=== PATIENT | female | born 1995 | race Caucasian/White ===

== ENCOUNTER 2023-06-13 02:30 | Inpatient (IN) | payer OTHER ==
[2023-06-13] MEDS ORDERED: Ondansetron PF 4 MG/2 ML Vial ONE ×2 (02:45→13:16)
[2023-06-13] MEDS ORDERED: Morphine 4 MG/ML VIAL ONE ×2 (02:57→03:19)
[2023-06-13 03:15] LABS: #Eosinphils 0.1 thou/uL (0.0-0.7); #Monocytes 0.5 thou/uL (0.11-0.59); #Neutrophils 5.2 thou/uL (1.40-6.50); %Basophils 0.3 % (0.0-1.0); %Eosinophils 1.6 % (0.0-10.0); %Lymphocytes 33.7 % (21.0-51.0); %Monocytes 5.1 % (0.0-10.0); %Neutrophils 59.1 % (42.0-75.0); Hematocrit 41.5 % (36.0-47.0); Hemoglobin 14.6 g/dL (12.0-16.0); Mean Corpuscular HGB CONC 35.2 g/dL (32.0-36.0); Mean Corpuscular Hemoglobin 31.5 pg (27.0-31.0); Mean Corpuscular Volume 89.6 fl (78.0-98.0); Mean Platelet Volume 10.3 fL (7.4-10.4); Platelet Count 321 10x3/uL (130-400); RBC Distribution Width 11.6 % (11.5-14.5); Red Blood Cell (RBC) Count 4.63 mill/uL (4.20-5.40); White Blood Cell (WBC) Count 8.9 10x3/uL (4.8-10.8)
[2023-06-13] MEDS ORDERED: HYDROmorphone 0.5 MG/0.5 ML SYRINGE ONE ×3 (03:38→11:48)
[2023-06-13 03:39] LABS: ALT (SGPT) 18 U/L (8-55); AST (SGOT) 24 U/L (5-34); Albumin 4.7 g/dL (3.5-5.0); Alkaline Phosphatase 61 U/L (40-110); Anion Gap 17 mmol/L (10-20); BUN (Urea Nitrogen) 21 mg/dL (7.0-18.7); Bilirubin, Total 0.2 mg/dL (0.2-1.2); Calc. Creatinine Clearance 0 mL/min (70-130); Carbon Dioxide 19 mmol/L (22-29); Chloride 108 mmol/L (98-107); Estimated GFR 77; Globulin 2.9 g/dL (2.4-3.5); Glucose 109 mg/dL (70-105); Lipase 45 U/L (8-78); Potassium 3.7 mmol/L (3.5-5.1); Protein, Total 7.6 g/dL (6.0-8.3); Sodium 140 mmol/L (136-145)
[2023-06-13 03:46] LABS: BHCG - Serum Negative (NEGATIVE); Pregs Control Background? CLEAR/WHITE (CLR/WHITE); Pregs Control Bar Appear? YES (CONTROL BAR)
[2023-06-13] MEDS ORDERED: Ketorolac Tromethamine 30 MG/ML VIAL ONE ×3 (04:32→13:16)
[2023-06-13 06:04] LABS: Bacteria/HPF 1+ HPF (None Seen); Bilirubin Negative (Negative); Blood, Urine 2+ (Negative); CAUTI Indications for Culture Dysuria,urgency,freq; Clarity Clear (Clear); Glucose, Urine (Dipstick) Normal (Negative); Ketone, Urine Negative (Negative); Leukocyte 500 Leu/uL (Negative); Nitrite Negative (Negative); Protein, Urine (Dipstick) Negative (Neg-Trace); Specific Gravity, Urine 1.036 (1.002-1.036); Urobilinogen Normal mg/dL (Less than 2); WBC/HPF Greater than 50 HPF (0-3)
[2023-06-13 06:05] LABS: Urine Culture Reflex Yes Yes
[2023-06-13] MEDS ORDERED: cefTRIAXone (ROCEPHIN) 1 GM VIAL ONE (06:11)
[2023-06-13] MEDS ORDERED: Senokot S 8.6-50 MG TAB PO PRN (07:39)
[2023-06-13] MEDS ORDERED: Guaifenesin DM 100-10/5 ML UDCUP PO PRN (07:39)
[2023-06-13] MEDS ORDERED: Morphine 4 MG/ML VIAL SLOW IVP PRN (07:58)
[2023-06-13 08:12] VITALS: BMI 29.2
[2023-06-13] MEDS ORDERED: FLU VACC QS2023-24(6MOS UP)/PF 60 MCG/0.5 ML SYRINGE IM ONE (08:30)
[2023-06-13] MEDS: HYDROcodone/Acetaminophen 5/325 mg Tablet PO PRN ×2 (08:37→20:04)
[2023-06-13] MEDS: Sodium Chloride 0.9% 1,000 ML IV SCH ×2 (08:38→17:18)
[2023-06-13] MEDS ORDERED: Iopamidol 30 ML ONE (09:06)
[2023-06-13] MEDS: Ondansetron PF 4 MG/2 ML Vial IVP PRN ×2 (09:17→15:01)
[2023-06-13] MEDS ORDERED: fentaNYL 50 mcg/mL 1 mL Vial ONE ×3 (10:44→14:22)
[2023-06-13] MEDS ORDERED: fentaNYL PF 100 MCG/2 ML SYRINGE ONE (12:46)
[2023-06-13] MEDS ORDERED: Midazolam HCl 2 mg/2 ml Vial ONE (12:46)
[2023-06-13] MEDS ORDERED: NEOSTIGMINE 3 MG/3 ML SYR 3 MG/3 ML SYRINGE ONE (13:16)
[2023-06-13] MEDS ORDERED: Rocuronium Bromide 10 MG/ML (10ML VIAL) ONE (13:16)
[2023-06-13] MEDS ORDERED: PROPOFOL 200 MG/20 ML VIAL ONE (13:16)
[2023-06-13] MEDS ORDERED: Glycopyrrolate 0.2 MG/ML 5 ML SYRINGE ONE (13:16)
[2023-06-13] MEDS ORDERED: Dexamethasone 20 MG/5 ML VIAL ONE (13:16)
[2023-06-13] MEDS ORDERED: diphenhydrAMINE 50 MG/ML VIAL IVP PRN (13:55)
[2023-06-13] MEDS ORDERED: Bisacodyl 10 MG SUPP PR PRN (13:55)
[2023-06-13] MEDS ORDERED: Oxybutynin 5 MG TAB PO PRN (13:55)
[2023-06-13] MEDS ORDERED: Mag-Al 1200 mg/1200 mg/30 ML UDCUP PO PRN (13:55)
[2023-06-13] MEDS: Ketorolac Tromethamine 30 MG/ML VIAL IVP PRN ×2 (16:49→22:50)
[2023-06-13] MEDS: Phenazopyridine HCl 100 MG TAB PO SCH (17:17)
[2023-06-13] MEDS ORDERED: Piperacillin/Tazobactam 3.375 GM in Sodium Chloride 0.9% 100 ML IVPB SCH ×2 (18:45→19:00)
[2023-06-13] MEDS ORDERED: Ondansetron PF 4 MG/2 ML Vial IVP SCH (19:45)
[2023-06-13] MEDS: Famotidine/PF 20 mg/2ml Vial SLOW IVP SCH (20:01)
[2023-06-13] MEDS: Docusate 100 MG CAP PO SCH (20:01)
[2023-06-14] MEDS: Piperacillin/Tazobactam 3.375 GM in Sodium Chloride 0.9% 100 ML IVPB SCH ×3 (00:51→17:55)
[2023-06-14] MEDS: HYDROcodone/Acetaminophen 5/325 mg Tablet PO PRN ×3 (00:51→11:40)
[2023-06-14] MEDS: Ondansetron PF 4 MG/2 ML Vial IVP PRN ×3 (00:51→12:35)
[2023-06-14] MEDS: Sodium Chloride 0.9% 1,000 ML IV SCH ×3 (01:17→23:36)
[2023-06-14] MEDS: Ketorolac Tromethamine 30 MG/ML VIAL IVP PRN ×3 (05:17→23:33)
[2023-06-14 06:58] LABS: #Monocytes 0.9 thou/uL (0.11-0.59); #Neutrophils 12.3 thou/uL (1.40-6.50); %Basophils 0.1 % (0.0-1.0); %Lymphocytes 4.6 % (21.0-51.0); %Monocytes 6.2 % (0.0-10.0); %Neutrophils 88.7 % (42.0-75.0); Hematocrit 35.6 % (36.0-47.0); Hemoglobin 11.9 g/dL (12.0-16.0); Mean Corpuscular HGB CONC 33.4 g/dL (32.0-36.0); Mean Corpuscular Hemoglobin 30.5 pg (27.0-31.0); Mean Corpuscular Volume 91.3 fl (78.0-98.0); Mean Platelet Volume 10.6 fL (7.4-10.4); Platelet Count 197 10x3/uL (130-400); RBC Distribution Width 11.9 % (11.5-14.5); White Blood Cell (WBC) Count 13.8 10x3/uL (4.8-10.8)
[2023-06-14 07:28] LABS: Anion Gap 13 mmol/L (10-20); BUN (Urea Nitrogen) 13 mg/dL (7.0-18.7); Calc. Creatinine Clearance 121 mL/min (70-130); Calcium 8.1 mg/dL (7.8-10.44); Carbon Dioxide 20 mmol/L (22-29); Chloride 110 mmol/L (98-107); Estimated GFR 96; Glucose 120 mg/dL (70-105); Potassium 3.7 mmol/L (3.5-5.1); Sodium 139 mmol/L (136-145)
[2023-06-14] MEDS ORDERED: cefTRIAXone\\ROCEPHIN 1 GM in Sodium Chloride 0.9% 100 ML IVPB SCH (09:00)
[2023-06-14] MEDS: Phenazopyridine HCl 100 MG TAB PO SCH ×3 (09:19→17:44)
[2023-06-14] MEDS: Docusate 100 MG CAP PO SCH ×2 (09:19→20:49)
[2023-06-14] MEDS: Famotidine/PF 20 mg/2ml Vial SLOW IVP SCH ×2 (09:22→20:49)
[2023-06-14] MEDS: Acetaminophen 325 MG TAB PO PRN (14:39)
[2023-06-15] MEDS: Acetaminophen 325 MG TAB PO PRN ×3 (02:06→18:06)
[2023-06-15] MEDS: Piperacillin/Tazobactam 3.375 GM in Sodium Chloride 0.9% 100 ML IVPB SCH (02:14)
[2023-06-15 04:39] LABS: #Monocytes 0.5 thou/uL (0.11-0.59); #Neutrophils 5.2 thou/uL (1.40-6.50); %Basophils 0.3 % (0.0-1.0); %Eosinophils 0.1 % (0.0-10.0); %Lymphocytes 14.7 % (21.0-51.0); %Monocytes 7.4 % (0.0-10.0); %Neutrophils 77.4 % (42.0-75.0); Hematocrit 33.4 % (36.0-47.0); Hemoglobin 11.3 g/dL (12.0-16.0); Mean Corpuscular HGB CONC 33.8 g/dL (32.0-36.0); Mean Corpuscular Hemoglobin 31.2 pg (27.0-31.0); Mean Corpuscular Volume 92.3 fl (78.0-98.0); Mean Platelet Volume 10.2 fL (7.4-10.4); Platelet Count 172 10x3/uL (130-400); RBC Distribution Width 11.6 % (11.5-14.5); Red Blood Cell (RBC) Count 3.62 mill/uL (4.20-5.40); White Blood Cell (WBC) Count 6.7 10x3/uL (4.8-10.8)
[2023-06-15 05:10] LABS: Anion Gap 8 mmol/L (10-20); BUN (Urea Nitrogen) 9 mg/dL (7.0-18.7); Calc. Creatinine Clearance 122 mL/min (70-130); Calcium 7.8 mg/dL (7.8-10.44); Carbon Dioxide 22 mmol/L (22-29); Chloride 111 mmol/L (98-107); Estimated GFR 98; Glucose 108 mg/dL (70-105); Potassium 3.2 mmol/L (3.5-5.1); Sodium 138 mmol/L (136-145)
[2023-06-15] MEDS: Ketorolac Tromethamine 30 MG/ML VIAL IVP PRN ×2 (05:25→20:47)
[2023-06-15] MEDS: Methocarbamol 500 MG TAB PO SCH (08:56)
[2023-06-15] MEDS: Phenazopyridine HCl 100 MG TAB PO SCH ×3 (08:56→18:04)
[2023-06-15] MEDS: Gabapentin 300 MG CAP PO SCH (08:57)
[2023-06-15] MEDS: Docusate 100 MG CAP PO SCH ×2 (08:57→20:55)
[2023-06-15] MEDS: Famotidine/PF 20 mg/2ml Vial SLOW IVP SCH ×2 (08:58→20:47)
[2023-06-15] MEDS: Sodium Chloride 0.9% 1,000 ML IV SCH ×2 (09:03→20:48)
[2023-06-15] MEDS: cefTRIAXone\\ROCEPHIN 2 GM in Sodium Chloride 0.9% 100 ML IVPB SCH (09:10)
[2023-06-16] MEDS: Acetaminophen 325 MG TAB PO PRN ×2 (04:09→16:09)
[2023-06-16] MEDS: Ondansetron PF 4 MG/2 ML Vial IVP PRN (04:39)
[2023-06-16] MEDS: traMADol HCl 50 MG TAB PO PRN ×2 (04:43→23:23)
[2023-06-16 05:30] LABS: #Eosinphils 0.1 thou/uL (0.0-0.7); #Monocytes 0.6 thou/uL (0.11-0.59); #Neutrophils 6.9 thou/uL (1.40-6.50); %Basophils 0.1 % (0.0-1.0); %Eosinophils 1.2 % (0.0-10.0); %Lymphocytes 11.7 % (21.0-51.0); %Neutrophils 79.7 % (42.0-75.0); Hematocrit 35.3 % (36.0-47.0); Hemoglobin 12.1 g/dL (12.0-16.0); Mean Corpuscular HGB CONC 34.3 g/dL (32.0-36.0); Mean Corpuscular Hemoglobin 30.9 pg (27.0-31.0); Mean Corpuscular Volume 90.3 fl (78.0-98.0); Mean Platelet Volume 10.3 fL (7.4-10.4); Platelet Count 210 10x3/uL (130-400); RBC Distribution Width 11.6 % (11.5-14.5); Red Blood Cell (RBC) Count 3.91 mill/uL (4.20-5.40); White Blood Cell (WBC) Count 8.6 10x3/uL (4.8-10.8)
[2023-06-16] MEDS: Sodium Chloride 0.9% 1,000 ML IV SCH ×3 (05:53→17:17)
[2023-06-16] MEDS: cefTRIAXone\\ROCEPHIN 2 GM in Sodium Chloride 0.9% 100 ML IVPB SCH (09:09)
[2023-06-16] MEDS: Phenazopyridine HCl 100 MG TAB PO SCH ×3 (09:09→17:17)
[2023-06-16] MEDS: Gabapentin 300 MG CAP PO SCH (09:10)
[2023-06-16] MEDS: Famotidine/PF 20 mg/2ml Vial SLOW IVP SCH ×2 (09:10→23:00)
[2023-06-16] MEDS: Docusate 100 MG CAP PO SCH ×2 (09:11→21:15)
[2023-06-16] MEDS: Methocarbamol 500 MG TAB PO SCH (09:18)
[2023-06-16] MEDS: Acyclovir 400 mg Tablet PO SCH ×3 (13:16→21:16)
[2023-06-16] MEDS: Famotidine 20 MG TAB PO SCH (21:15)
[2023-06-17] MEDS: Acyclovir 400 mg Tablet PO SCH ×3 (01:02→12:55)
[2023-06-17] MEDS: traMADol HCl 50 MG TAB PO PRN (06:34)
[2023-06-17 08:11] VITALS: BP 131/94; TEMP 99
[2023-06-17] MEDS: cefTRIAXone\\ROCEPHIN 2 GM in Sodium Chloride 0.9% 100 ML IVPB SCH (08:38)
[2023-06-17] MEDS: Methocarbamol 500 MG TAB PO SCH (08:41)
[2023-06-17] MEDS: Phenazopyridine HCl 100 MG TAB PO SCH (08:42)
[2023-06-17] MEDS: Docusate 100 MG CAP PO SCH (08:48)
[2023-06-17] MEDS: Famotidine 20 MG TAB PO SCH (08:49)
[2023-06-17] MEDS: Gabapentin 300 MG CAP PO SCH (08:50)
== END 2023-06-17 13:45 | disposition home or self-care (01) | DRG 660 ==
LOC: ERS 02:30 → T4-A 07:39
PROVIDERS: ADMIT Hospitalist; ATTEND Family Medicine
PROC: 0T768DZ Dilation of Right Ureter with Intraluminal Device, Via Natural or Artificial Opening Endoscopic (ICD-10-PCS; principal; 2023-06-13)
DX: N13.6 Pyonephrosis (principal); E87.20 Acidosis, unspecified; R78.81 Bacteremia; Z98.890 Other specified postprocedural states; Z83.3 Family history of diabetes mellitus; Z88.2 Allergy status to sulfonamides
CPT/HCPCS: 36415; 74177; 74420; 80048; 80053; 81001; 83605; 83690; 84703; 85025; 87040; 87077; 87086; 87149; 87186; 96361; 96365; 96375; 96376; C2617; J0696; J1100; J1170; J1650; J1885; J2250; J2270; J2405; J2543; J2704; J3010; J3490; J7050; Q9967; S0028

== ENCOUNTER 2023-06-26 09:14 | Outpatient (CLI) | payer OTHER ==
[2023-06-26 10:28] LABS: Hematocrit 43.1 % (34.9-44.5); Hemoglobin 14.7 g/dL (12.0-15.5); Mean Corpuscular HGB CONC 34.1 g/dL (32.0-36.0); Mean Corpuscular Hemoglobin 30.5 pg (27.0-33.0); Mean Corpuscular Volume 89.4 fl (81.6-98.3); Mean Platelet Volume 9.7 fl (7.4-10.4); Platelet Count 435 10x3/uL (150-450); RBC Distribution Width 11.8 % (11.5-14.5); Red Blood Cell (RBC) Count 4.82 10x6/uL (3.90-5.03); White Blood Cell (WBC) Count 6.3 10x3/uL (3.5-10.5)
[2023-06-26 10:31] LABS: BHCG - Serum Negative (NEGATIVE); Pregs Control Background? CLEAR/WHITE (CLR/WHITE); Pregs Control Bar Appear? YES (CONTROL BAR)
[2023-06-26 10:35] LABS: PTT 27.6 sec (22.0-33.0); Prothrombin Time 10.9 sec (9.5-12.1)
[2023-06-26 10:43] LABS: Anion Gap 15 mmol/L (10-20); BUN (Urea Nitrogen) 18 mg/dL (7.0-18.7); Calc. Creatinine Clearance 0 mL/min (70-130); Calcium 9.7 mg/dL (7.8-10.44); Carbon Dioxide 24 mmol/L (22-29); Chloride 104 mmol/L (98-107); Estimated GFR 81; Glucose 82 mg/dL (70-105); Potassium 4.6 mmol/L (3.5-5.1); Sodium 138 mmol/L (136-145)
== END 2023-06-26 09:15 | disposition home or self-care (01) ==
LOC: LABBT 09:14
PROVIDERS: ATTEND Urology
DX: Z01.812 Encounter for preprocedural laboratory examination (principal); A41.9 Sepsis, unspecified organism; N20.2 Calculus of kidney with calculus of ureter; N39.0 Urinary tract infection, site not specified; B96.4 Proteus (mirabilis) (morganii) as the cause of diseases classified elsewhere
CPT/HCPCS: 80048; 84703; 85027; 85610; 85730

== ENCOUNTER 2023-07-01 09:22 | Day surgery (SDC) | payer OTHER ==
[2023-06-26 09:50] VITALS: BMI 28.8
[2023-07-01] MEDS ORDERED: cefTRIAXone (ROCEPHIN) 2 GM VIAL ONE (10:02)
[2023-07-01] MEDS ORDERED: Sodium Chloride 0.9% 100 ML ONE (10:03)
[2023-07-01] MEDS ORDERED: Rocuronium Bromide 10 MG/ML (10ML VIAL) ONE ×2 (10:54→11:03)
[2023-07-01] MEDS ORDERED: Fentanyl 250 MCG/5 ML VIAL ONE (10:54)
[2023-07-01] MEDS ORDERED: PROPOFOL 20 ML ONE (10:54)
[2023-07-01] MEDS ORDERED: Lidocaine 2% PF 5 ML VIAL ONE (10:54)
[2023-07-01] MEDS ORDERED: Midazolam HCl 2 mg/2 ml Vial ONE (10:54)
[2023-07-01] MEDS ORDERED: Dexamethasone 4 mg/ml Vial ONE (10:54)
[2023-07-01] MEDS ORDERED: Ketorolac Tromethamine 30 MG/ML VIAL ONE (11:03)
[2023-07-01] MEDS ORDERED: Lidocaine 1% PF 5 ML VIAL ONE (11:03)
[2023-07-01] MEDS ORDERED: Ondansetron PF 4 MG/2 ML Vial ONE (11:03)
[2023-07-01] MEDS ORDERED: PROPOFOL 200 MG/20 ML VIAL ONE (11:03)
[2023-07-01] MEDS ORDERED: SUGAMMADEX SODIUM 200 MG/2 ML VIAL ONE (11:22)
[2023-07-01] MEDS ORDERED: Phenazopyridine HCl 100 MG TAB ONE (12:17)
[2023-07-01] MEDS ORDERED: Oxybutynin 5 MG TAB ONE (12:17)
[2023-07-01] MEDS ORDERED: Iopamidol 15 ML ONE (13:01)
== END 2023-07-01 13:52 | disposition home or self-care (01) ==
LOC: SDC 09:22
PROVIDERS: ATTEND Urology
PROC: 0TC68ZZ Extirpation of Matter from Right Ureter, Via Natural or Artificial Opening Endoscopic (ICD-10-PCS; principal; 2023-07-01)
PROC: 0T768DZ Dilation of Right Ureter with Intraluminal Device, Via Natural or Artificial Opening Endoscopic (ICD-10-PCS; principal; 2023-07-01)
DX: N20.2 Calculus of kidney with calculus of ureter (principal); A41.89 Other specified sepsis; B96.4 Proteus (mirabilis) (morganii) as the cause of diseases classified elsewhere; N39.0 Urinary tract infection, site not specified; Z88.2 Allergy status to sulfonamides
CPT/HCPCS: 74018; 74420; 82365; 88300; C1769; C2617; J0696; J1100; J1885; J2001; J2250; J2405; J2704; J3010; J3490; Q9967